=== PATIENT | male | born 2005 | race African-American/Black ===

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

== ENCOUNTER 2025-06-21 17:23 | Emergency (ER) | payer MEDICAID ==
[~2025-06-21] VITALS: Ht 177.8 cm; Wt 63.6 kg
[2025-06-21 18:06] VITALS: PULSE 110; O2SAT 98
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
== END 2025-06-21 22:22 | disposition left against medical advice (07) ==
LOC: ER 17:23 → EDBD 17:23 → ER 22:22
DX: T65.891A Toxic effect of other specified substances, accidental (unintentional), initial encounter (principal); H53.8 Other visual disturbances; Y92.89 Other specified places as the place of occurrence of the external cause